=== PATIENT | female | born 2000 | race Caucasian/White ===

== ENCOUNTER 2021-12-08 15:41 | Observation (INO) | payer OTHER, MEDICAID ==
[2021-12-08 16:25] VITALS: BP 128/71; PULSE 95; O2SAT 97
== END 2021-12-08 16:50 | disposition home or self-care (01) ==
LOC: OB 15:41
PROVIDERS: ADMIT Obstetrics & Gynecology; ATTEND Obstetrics & Gynecology
DX: Z34.03 Encounter for supervision of normal first pregnancy, third trimester (principal); Z3A.35 35 weeks gestation of pregnancy
CPT/HCPCS: 59025; G0378

== ENCOUNTER 2021-12-15 12:27 | Observation (INO) | payer OTHER, MEDICAID ==
[2021-12-15 12:55] VITALS: BP 129/76; PULSE 91; O2SAT 98
== END 2021-12-15 13:17 | disposition home or self-care (01) ==
LOC: OB 12:27
PROVIDERS: ADMIT Obstetrics & Gynecology; ATTEND Obstetrics & Gynecology
DX: O98.513 Other viral diseases complicating pregnancy, third trimester (principal); Z3A.36 36 weeks gestation of pregnancy
CPT/HCPCS: 59025; G0378

== ENCOUNTER 2021-12-22 13:53 | Observation (INO) | payer OTHER, MEDICAID ==
[2021-12-22 14:43] VITALS: BP 120/79; PULSE 99; O2SAT 99
== END 2021-12-22 14:36 | disposition home or self-care (01) ==
LOC: OB 13:53
PROVIDERS: ADMIT Obstetrics & Gynecology; ATTEND Obstetrics & Gynecology
DX: O98.513 Other viral diseases complicating pregnancy, third trimester (principal); Z3A.37 37 weeks gestation of pregnancy
CPT/HCPCS: 59025; G0378

== ENCOUNTER 2022-01-01 02:49 | Inpatient (IN) | payer OTHER, MEDICAID ==
[2022-01-01] MEDS ORDERED: Lactated Ringers 1,000 ML IV ONE (19:00)
[2022-01-01] MEDS ORDERED: Ephedrine Sulfate 50 MG/ML IV PRN (19:00)
[2022-01-01] MEDS ORDERED: Lactated Ringers 1,000 ML IV SCH (19:00)
[2022-01-01] MEDS ORDERED: FENTANYL 2 MCG-BUPIV 0.125%-NS 250 ML Epidur 250 ML EPIDURAL SCH (19:00)
[2022-01-01] MEDS ORDERED: PITOCIN 30 UNITS/ LR 500 ML 30 UNITS/500 ML PLAST..BAG IV SCH (19:00)
[2022-01-01] MEDS ORDERED: Nubain 10 MG/ML IV PRN (19:00)
[2022-01-01] MEDS ORDERED: STADOL 2 MG IV PRN ×2 (19:00→22:19)
[2022-01-01] MEDS ORDERED: XYLOCAINE 1% HCL 20 ML MDV IJ PRN (19:00)
[2022-01-01] MEDS ORDERED: Zofran 4 MG/2 ML VIAL IV PRN (19:00)
[2022-01-01 19:26] LABS: Absolute Neutrophil Ct (ANC) 6.44 (1.4-6.9); Basophil (Absolute #) 0.01 (0-0.4); Eosinophil % 0.7 % (0.00-5.0); Eosinophil (Absolute #) 0.06 (0-0.5); Hematocrit 31.4 % (35-47); Hemoglobin 10.3 gm/dl (12.0-16.0); Lymphocyte (Absolute #) 1.49 (1.0-4.6); Lymphocytes % 17.3 % (24.0-44.0); Mean Corpuscular Hemoglobin 28.2 pg (26-32); Mean Corpuscular Hgb Concent. 32.8 g/dl (32-36); Mean Platelet Volume 12.7 fl (7.5-11.0); Monocyte (Absolute #) 0.59 (0.0-1.3); Monocytes % 6.9 % (0.0-12.0); Platelet Count 230 K/mm3 (150-450); Red Blood Count 3.65 M/mm3 (4.1-5.4); Red Cell Distribution Width 15.1 % (11.5-14.0); White Blood Count 8.6 K/mm3 (4.0-10.5)
[2022-01-01 19:44] LABS: Amphetamine,Urine NEGATIVE (NEGATIVE); Barbiturate,Urine NEGATIVE (NEGATIVE); Benzodiazepine,Urine NEGATIVE (NEGATIVE); Cocaine,Urine NEGATIVE (NEGATIVE); Methadone,Urine NEGATIVE (NEGATIVE); Opiate,Urine NEGATIVE (NEGATIVE); PCP,Urine NEGATIVE (NEGATIVE); THC,Urine NEGATIVE (NEGATIVE)
[2022-01-02] MEDS ORDERED: Ephedrine Sulfate 50 MG/ML ONE (01:43)
[2022-01-02] MEDS ORDERED: XYLOCAINE 2%/Epi 1:200000 20ML VIAL MPF ONE (01:43)
[2022-01-02] MEDS ORDERED: PHENYLEPHRINE HCL ONE (01:43)
[2022-01-02] MEDS ORDERED: Pitocin 10 UNITS/ML ONE ×2 (01:44→03:35)
[2022-01-02] MEDS ORDERED: SUBLIMAZE 100 MCG/2 ML ONE (01:44)
[2022-01-02] MEDS ORDERED: CLINDAMYCIN-D5W 900 MG/50 ML*** 900 MG/50 ML BAG IV ONE (01:57)
[2022-01-02] MEDS ORDERED: Astramorph-Pf 5 MG/10 ML ONE (02:17)
[2022-01-02] MEDS ORDERED: Naropin 0.5% 30 ML VIAL ONE (02:23)
[2022-01-02] MEDS ORDERED: Decadron 4 MG INJ ONE (02:23)
[2022-01-02] MEDS ORDERED: OFIRMEV 100 ML IV ONE (02:49)
[2022-01-02] MEDS ORDERED: Marcaine 0.5%/Epinephrine 10 ML ONE (03:03)
[2022-01-02] MEDS ORDERED: Lactated Ringers 1,000 ML IV ONE (03:36)
[2022-01-02] MEDS ORDERED: Zofran 4 MG/2 ML VIAL ONE (04:15)
[2022-01-02] MEDS ORDERED: Mylicon 80MG PO PRN (04:54)
[2022-01-02] MEDS ORDERED: Dermoplast Spray TP PRN (04:54)
[2022-01-02] MEDS ORDERED: Anucort-HC SUPPOSITORY PR PRN (04:54)
[2022-01-02] MEDS ORDERED: LANSINOH 40 GM TOP PRN (04:54)
[2022-01-02] MEDS ORDERED: CORTISONE 1% CREAM TP PRN (04:54)
[2022-01-02] MEDS ORDERED: Dulcolax 10 MG SUPP PR PRN (04:54)
[2022-01-02] MEDS ORDERED: Nubain 10 MG/ML IV PRN (04:58)
[2022-01-02] MEDS ORDERED: Narcan 0.4 MG/ML IV PRN (04:58)
[2022-01-02] MEDS ORDERED: HOLD NARCOTIC ANALGESICS AND SEDATIVES X24 HR MC PRN (04:58)
[2022-01-02] MEDS ORDERED: MORPHINE SULFATE 2 MG INJ IV PRN (04:58)
[2022-01-02] MEDS ORDERED: PERCOCET TABLET 5/325MG PO PRN (04:58)
[2022-01-02] MEDS ORDERED: CLARITIN 10 MG PO PRN (04:58)
[2022-01-02] MEDS ORDERED: Sodium Chloride 0.9% 10 ML FLUSH Syringe IJ PRN (04:58)
[2022-01-02] MEDS ORDERED: DEMEROL 50 MG IV PRN (04:58)
[2022-01-02] MEDS ORDERED: BENADRYL 50 MG/ML IV PRN (04:58)
[2022-01-02] MEDS: Dextrose 5%-Lr IV Solution 1000 ML 1,000 ML IV SCH ×2 (05:12→17:43)
[2022-01-02] MEDS ORDERED: GENTAMICIN 80 MG/50 ML PREMIX*** 80 MG/50 ML ML IV SCH (06:00)
--- NOTE | 2022-01-02 08:00 | XRAY ---
Indication: Follow-up retained sponge removal. Comparison: Taken earlier in the day KUB demonstrates removal of previous left abdomen retained sponge. Bowel gas pattern nonobstructed. Solid organs and osseous structures unremarkable. Comment: Preliminary interpretation made by [facility]. No critical discrepancy.
--- NOTE | 2022-01-02 08:00 | XRAY ---
Indication: Possible retained sponge post section. Comparison: None KUB demonstrates left midabdomen retained sponge. Bowel gas pattern nonobstructed. Solid organs and osseous structures unremarkable. Comment: Preliminary interpretation made by [facility]. No critical discrepancy.
[2022-01-02] MEDS: GENTAMICIN 80 MG/50 ML PREMIX*** 80 MG/50 ML ML IV SCH ×3 (08:22→22:16)
[2022-01-02] MEDS: CLINDAMYCIN-D5W 900 MG/50 ML*** 900 MG/50 ML BAG IV SCH ×2 (08:55→15:01)
[2022-01-02 09:13] LABS: Basophil (Absolute #) 0.01 (0-0.4); Eosinophil % 0.1 % (0.00-5.0); Eosinophil (Absolute #) 0.01 (0-0.5); Hematocrit 30.3 % (35-47); Hemoglobin 9.8 gm/dl (12.0-16.0); Lymphocyte (Absolute #) 0.83 (1.0-4.6); Lymphocytes % 5.3 % (24.0-44.0); Mean Cell Volume 87.1 fl (78-100); Mean Corpuscular Hemoglobin 28.2 pg (26-32); Mean Corpuscular Hgb Concent. 32.3 g/dl (32-36); Mean Platelet Volume 12.2 fl (7.5-11.0); Monocyte (Absolute #) 0.57 (0.0-1.3); Monocytes % 3.6 % (0.0-12.0); Neutrophil % 90.9 % (36.0-66.0); Platelet Count 200 K/mm3 (150-450); Red Blood Count 3.48 M/mm3 (4.1-5.4); Red Cell Distribution Width 15.2 % (11.5-14.0); White Blood Count 15.6 K/mm3 (4.0-10.5)
[2022-01-02 10:03] LABS: Bacteria RARE /HPF (NEGATIVE); Mucus SLIGHT /HPF (NEGATIVE)
[2022-01-02 10:04] LABS: Appearance CLOUDY (CLEAR); Bilirubin NEGATIVE (NEGATIVE); Dipstick done @ ? MAIN LAB; Glucose NEGATIVE (NEGATIVE); Ketones TRACE (NEGATIVE); Nitrite NEGATIVE (NEGATIVE); Protein,Urine Dip 100 (Negative); RBC >101 /HPF (0-2); RBC LARGE Ery/ul (0-5); Specific Gravity 1.025 (1.005-1.025); Urobilinogen 0.2 mg/dL (0-1)
[2022-01-02] MEDS: Docusate Sodium 100 MG PO SCH ×2 (10:11→22:16)
[2022-01-02] MEDS: FERREX 150 PO SCH (10:11)
[2022-01-02] MEDS ORDERED: STADOL 2 MG IV PRN (10:45)
[2022-01-02] MEDS ORDERED: ENOXAPARIN SODIUM SQ ONE (18:00)
[2022-01-02 18:19] LABS: Absolute Neutrophil Ct (ANC) 12.57 (1.4-6.9); Basophil (Absolute #) 0.02 (0-0.4); Eosinophil (Absolute #) 0 (0-0.5); Hemoglobin 8.7 gm/dl (12.0-16.0); Lymphocyte (Absolute #) 0.75 (1.0-4.6); Lymphocytes % 5.4 % (24.0-44.0); Mean Cell Volume 87.9 fl (78-100); Mean Corpuscular Hemoglobin 28.3 pg (26-32); Mean Corpuscular Hgb Concent. 32.2 g/dl (32-36); Mean Platelet Volume 12.2 fl (7.5-11.0); Monocyte (Absolute #) 0.63 (0.0-1.3); Monocytes % 4.5 % (0.0-12.0); Platelet Count 207 K/mm3 (150-450); Red Blood Count 3.07 M/mm3 (4.1-5.4); Red Cell Distribution Width 15.2 % (11.5-14.0)
[2022-01-02 18:26] LABS: ALBUMIN 2.9 g/dL (3.5-5.0); ALKALINE PHOSPHATASE 106 U/L (38-126); ANION GAP 10.9 MEQ/L (5-15); BLOOD UREA NITROGEN 7 mg/dL (7-17); CHLORIDE 104 mmol/L (98-107); Calcium 8.4 mg/dL (8.4-10.2); Carbon Dioxide 23 mmol/L (22-30); EST GLOMERULAR FILTRATION RATE > 60.0 ML/MIN; Glucose 157 mg/dL (74-106); Potassium 4.3 mmol/L (3.5-5.1); SGOT/AST 25 U/L (14-36); SGPT/ALT 15 U/L (0-35); SODIUM 134 mmol/L (137-145); Total Protein 5.6 g/dL (6.3-8.2)
[2022-01-03] MEDS: MOTRIN 400 MG PO PRN ×3 (01:05→16:14)
[2022-01-03] MEDS ORDERED: NORCO 5/325 MG PO PRN (03:00)
[2022-01-03 04:34] LABS: Absolute Neutrophil Ct (ANC) 9.32 (1.4-6.9); Basophil (Absolute #) 0.01 (0-0.4); Eosinophil % 0.1 % (0.00-5.0); Eosinophil (Absolute #) 0.01 (0-0.5); Hematocrit 26.5 % (35-47); Hemoglobin 8.5 gm/dl (12.0-16.0); Mean Cell Volume 88.3 fl (78-100); Mean Corpuscular Hemoglobin 28.3 pg (26-32); Mean Corpuscular Hgb Concent. 32.1 g/dl (32-36); Mean Platelet Volume 12.3 fl (7.5-11.0); Monocytes % 7.5 % (0.0-12.0); Neutrophil % 77.3 % (36.0-66.0); Platelet Count 179 K/mm3 (150-450); Red Cell Distribution Width 15.3 % (11.5-14.0)
[2022-01-03 04:41] LABS: ALBUMIN 2.8 g/dL (3.5-5.0); ALKALINE PHOSPHATASE 104 U/L (38-126); ANION GAP 9.3 MEQ/L (5-15); BLOOD UREA NITROGEN 10 mg/dL (7-17); CHLORIDE 105 mmol/L (98-107); Calcium 8.9 mg/dL (8.4-10.2); Carbon Dioxide 23 mmol/L (22-30); Creatinine 1 0.58 mg/dL (0.52-1.04); EST GLOMERULAR FILTRATION RATE > 60.0 ML/MIN; Glucose 83 mg/dL (74-106); Potassium 3.8 mmol/L (3.5-5.1); SGOT/AST 24 U/L (14-36); SGPT/ALT 13 U/L (0-35); SODIUM 134 mmol/L (137-145); Total Protein 5.5 g/dL (6.3-8.2)
[2022-01-03] MEDS: FERREX 150 PO SCH (09:02)
[2022-01-03] MEDS: Docusate Sodium 100 MG PO SCH ×2 (09:02→21:21)
[2022-01-03] MEDS ORDERED: Ferrous Sulfate (IRON) 220 MG/5 ML PO SCH (10:00)
[2022-01-03] MEDS: TYLENOL EXTRA STRENGTH 500 MG PO PRN ×2 (12:43→21:21)
--- NOTE | 2022-01-03 14:15 | OP ---
SURGERY DATE/TIME: 01/02/2022 0147 PREOPERATIVE DIAGNOSIS: Intrauterine at 39 weeks gestation with nonreassuring heart rate tracing with persistent late deceleration. POSTOPERATIVE DIAGNOSIS: Intrauterine at 39 weeks gestation with nonreassuring heart rate tracing with persistent late deceleration with nuchal cord x1. PROCEDURE: Primary section, low flap transverse uterine incision, Pfannenstiel skin incision. SURGEON: Jaime Reza D.O. EDGING MACHINE SETTER: Maria Pedersen, surgical services manager. ANESTHESIA: Epidural. ESTIMATED BLOOD LOSS: 500 cc. COMPLICATIONS: None. INDICATIONS: The risks, benefits, indications and alternatives of the procedure were reviewed with the patient prior to procedure. The patient understood the risk of infection, bleeding, bowel injury, bladder injury, ureteral injury, pelvic infection and thromboembolic disorder associated with the surgery however desires to have this surgery as a possible means to alleviate her current medical condition. DESCRIPTION OF PROCEDURE AND FINDINGS: From this point the patient is taken to the operating room where her epidural anesthesia was found to be adequate. She was then prepared and draped in normal sterile fashion in the dorsal supine position with a leftward tilt. A Pfannenstiel skin incision is made with a scalpel and carried through to the underlying layer of the fascia with Bovie. The fascia was then incised in the midline and the incision extended laterally with Alston scissors. The superior aspect of the fascial incision was then grasped Shorty clamps elevated and the underlying rectus muscles dissected off bluntly. Attention is then turned to the inferior aspect of this incision which in similar fashion was grasped, tented up with Shorty clamps and the rectus muscles dissected off bluntly. The rectus muscles were then at the midline and the peritoneum identified, tented up and entered sharply with Metzenbaum scissors. The peritoneal incision was then extended superiorly and inferiorly with good visualization of the bladder. The bladder blade was then inserted and the vesicouterine peritoneum identified, grasped with pickups and entered sharply with Metzenbaum scissors. This incision was then extended laterally and bladder flap created digitally. The bladder blade was then reinserted and the lower uterine segment incised in transverse fashion with a scalpel. The uterine incision was then extended laterally with bandage scissors. The bladder blade was then removed and the infants head delivered atraumatically and was noted to have nuchal cord x1 and was reduced. The nose and mouth were suctioned with suction bulb and the cord clamped and cut. The infant was then handed off to the awaiting nurses. The placenta was then removed manually. The uterus exteriorized and cleared of all clots and debris. The uterine incision was repaired with 1-0 chromic in a running locked fashion. A second layer of the same suture was used to obtain excellent hemostasis. From this point the uterus is then returned to the abdomen. The gutters were cleared of clots and the peritoneal muscle closed in interrupted fashion using 2-0 chromic suture. The fascia was re-approximated with 0 Vicryl in running fashion. The subcutaneous layer was closed with 3-0 Vicryl and the skin was closed with absorbable keiry called INSORB. At this point the patient tolerated the procedure well. Due to the STAT situation, sponges were counted. However, there was a missing lap and at this point x-ray was obtained. X-ray indicated a lap remained in the abdomen. At this point the incision was reopened and as the skin incision was reopened the fascia was reopened, the muscles were . There was hemoperitoneum that was noted approximately 300 to 400 cc that was noted in the lower uterine segment was noted to be bleeding. A 2-0 chromic suture was used to alleviate the bleeding site and hemostasis was obtained at that site. The retained lap was then removed from the abdominal region and from that point again the muscles were closed in interrupted fashion using 2-0 chromic suture. The fascia re-approximated with 0 Vicryl. Subcutaneous layer was closed once again with 3-0 Vicryl suture and skin was closed once again with absorbable keiry called INSORB. From this point sponge, lap, needle and instrument counts were correct x2 again. The patient was then taken to the recovery room in stable condition. The patient delivered a live baby girl at 0214 hours, weight of the baby was 6 pounds 2 ounces and 's were 8 at 1 minute and 8 at 5 minutes.
[2022-01-03] MEDS: FEOSOL 325 MG PO SCH (21:21)
[2022-01-04] MEDS: MOTRIN 400 MG PO PRN ×2 (01:10→09:05)
--- NOTE | 2022-01-04 08:14 | PCM.NOTE ---
Date and Time: 01/04/22810 Subjective Assessment: pod 2 sp csection pt resting in bed and doing well able to ambulate and tolerate diet vss afebrile abd; soft incision c/d/intact uterus; firm' lochia; mild ext; no clubbing cyanosis or edema a/p sp csection pod 2 dc home today fu office in 2 wks OBJECTIVE DATA Vital Signs: Vital Signs - 24 hr Temp Pulse Resp BP Pulse Ox 01/04/22 02:00 98.3 F 90 20 120/69 99 01/03/22 20:00 98.1 F 92 H 18 115/56 99 01/03/22 14:00 98.4 F 85 18 100/61 Pain Assessment - Last Documented Pain Intensity [Anterior] 2 Pain Intensity 4 Pain Scale Used 0-10 Pain Scale Intake and Output: Intake & Output 01/01/22 01/02/22 01/03/22 01/04/22 11:59 11:59 11:59 11:59 Intake Total 250 2250 2800 Output Total 250 1700 3 Balance 0 550 2797 Weight 110.223 kg Assessment/Plan (1) Non-reassuring heart rate with late deceleration Current Visit: Yes Status: Acute Code(s): O36.8390 - MATERN CARE FOR ABNLT FETL HRT RATE OR RHYM, UNSP TRI, UNSP (2) Delivery by section Current Visit: Yes Status: Acute Code(s): [id number] - (3) delivery delivered Current Visit: Yes Status: Acute Code(s): O82 - ENCOUNTER FOR DE LIVERY WITHOUT INDICATION
--- NOTE | 2022-01-04 08:20 | PCM.DS ---
Discharge Summary Date of Admission: 01/01/22 23:00 Admitting Physician: CELIA FENTON DO Consults: Consults on Case 01/01/22 19:00 Notify Anesthesia Provider PRN 01/02/22 04:30 Navigation ONCE Primary Care Provider: SUDARSHAN ALEX Allergies Allergies Penicillins Allergy (Severe, Verified 12/31/21 12:23) Difficulty Breathing [facility] Summary - Hospital Course Hospital Course: pt admitted on january 01 for cytotec induction and was noted nonreasurring heart rate tracing on january 02 and was subsequently delivered by csection and was done so without complication and was noted having nuchal cord x 1 and was reduced delivering baby girl. during postop period did well however was noted to being anemic and was started on iron supplementation. incision appeared clean without issue and was sent home on norco for pain management. pt was advised to fu in office in 2 wks. pt was noted having hgb level at 8.5 prior to discharge and is stable. all questions answered to her satisfaction. - Vitals & Intake/Output Vital Signs: Vital Signs Temperature 98.3 F 01/04/22 02:00 Pulse Rate 90 01/04/22 02:00 Respiratory Rate 20 01/04/22 02:00 Blood Pressure 120/69 01/04/22 02:00 O2 Sat by Pulse Oximetry 99 01/04/22 02:00 Intake & Output: Intake & Output 01/01/22 01/02/22 01/03/22 01/04/22 11:59 11:59 11:59 11:59 Intake Total 250 2250 2800 Output Total 250 1700 3 Balance 0 550 2797 Weight 110.223 kg - Lab Result Diagrams: 01/03/22 04:19 01/03/22 04:19 Micro Results-Entire Visit: Microbiology 01/02/22 02:09 Urine Culture - Preliminary Urine, Catheterized NO GROWTH TO DATE Final Diagnosis/Problem List - Final Discharge Diagnosis/Problem (1) Non-reassuring heart rate with late deceleration Current Visit: Yes Status: Acute Code(s): O36.8390 - MATERN CARE FOR ABNLT FETL HRT RATE OR RHYM, UNSP TRI, UNSP (2) Delivery by section Current Visit: Yes Status: Acute Code(s): [id number] - (3) delivery delivered Current Visit: Yes Status: Acute Code(s): O82 - ENCOUNTER FOR DELIVERY WITHOUT INDICATION - Discharge Disposition: Home, Self-Care Condition: Stable Prescriptions: New Hydrocodone/Acetaminophen [Hydrocodone-Acetamin 5-325 mg] 1 tab PO Q6HPRN PRN #30 tablet MDD 4 PRN Reason: Pain Ferric Maltol [Accrufer] 30 mg PO BID #60 No Action Vit,Calc78/Iron/Folic [Prenatabs FA Tablet] 1 each PO DAILY Famotidine 20 mg [Pepcid 20 MG] 20 mg PO BID PRN PRN Reason: Heart burn Follow up with: SUDARSHAN ALEX NP [Primary Care Provider] - CELIA FENTON DO [ACTIVE STAFF] -
[2022-01-04] MEDS: Docusate Sodium 100 MG PO SCH (09:04)
[2022-01-04] MEDS: FEOSOL 325 MG PO SCH (09:04)
[2022-01-04 10:29] VITALS: BP 120/56; PULSE 101; O2SAT 100
[2022-01-04 10:41] LABS: HBsAg Screen Negative (Negative)
== END 2022-01-04 11:05 | disposition home or self-care (01) | DRG 787 ==
LOC: OB 18:37 → OBSVTOIN 23:00 → MED SURG 01-03 18:27
PROVIDERS: ADMIT Obstetrics & Gynecology; ATTEND Obstetrics & Gynecology
PROC: 10D00Z1 Extraction of Products of Conception, Low, Open Approach (ICD-10-PCS; principal; 2022-01-02)
DX: O36.8330 Maternal care for abnormalities of the fetal heart rate or rhythm, third trimester, not applicable or unspecified (principal); O98.513 Other viral diseases complicating pregnancy, third trimester; O69.81X0 Labor and delivery complicated by cord around neck, without compression, not applicable or unspecified; Z3A.39 39 weeks gestation of pregnancy; Z37.0 Single live birth; D64.9 Anemia, unspecified
CPT/HCPCS: 36415; 62322; 64488; 74018; 76937; 76942; 80053; 80307; 81001; 85025; 87086; 87340; 99140; J0595; J1100; J1580; J1650; J2274; J2370; J2405; J2590; J2795; J3010; L0625; A9270-GY